=== PATIENT | male | born 1955 | race Caucasian/White ===

== ENCOUNTER → 2016-10-13 | Outpatient (CLI) | payer MEDICARE ==
--- NOTE | 2016-10-14 03:42 | RAD ---
EXAM DESCRIPTION: XR CHEST 2 VIEWS 10/13/2016 3:03 PM CLINICAL HISTORY: 61 y/o , M, COUGH COMPARISON: Portable AP view of the chest January 20, 2012 FINDINGS: There is mild peribronchial thickening throughout the lungs bilaterally. There is patchy retrocardiac airspace disease. The heart is stable in size. The mediastinal contours are normal in appearance. The osseous structures are age appropriate. The upper abdomen is grossly normal. IMPRESSION: Peribronchial thickening with patchy retrocardiac airspace disease, may represent interstitial edema or viral/ atypical infectious process. Electronically signed by: Pato Mendez MD 10/14/2016 03:40
== END ==
LOC: RAD 14:36
PROVIDERS: ATTEND Nurse Practitioner Family
DX: R05 Cough (principal); R06.00 Dyspnea, unspecified; J98.4 Other disorders of lung

== ENCOUNTER 2016-10-14 02:01 | Observation (INO) | payer MEDICARE, OTHER ==
--- NOTE | 2016-10-14 02:28 | ED.PDOC ---
History of Present Illness - General Chief Complaint: Respiratory Problem Stated Complaint: cough and short of breath for past 3 weeks Time Seen by Provider: 10/14/16 02:27 Source: patient, RN notes reviewed, Vital Signs reviewed Exam Limitations: no limitations - History of Present Illness Initial Comments: 61 y/o male with history of afib and chf stated that he had progressive worsening of SOB and feeling of chest tightess.He was brought by sheriff jj after he was stopped with registration sticker. Timing/Duration: other - 3 weeks ago Severity: moderate Improving Factors: nothing Worsening Factors: other - exertion Associated Symptoms: shortness of breath Allergies/Adverse Reactions: Allergies NO KNOWN ALLERGY Allergy (Unverified 11/02/13 03:22) Home Medications: Ambulatory Orders Furosemide [Lasix] 20 mg PO 10/14/16 Lisinopril 20 mg PO 10/14/16 Metoprolol Tartrate 50 mg PO 10/14/16 Potassium Chloride [K-Tab] 20 meq PO 10/14/16 Simvastatin 10 mg PO 10/14/16 Review of Systems - Review of Systems Constitutional: States: no symptoms reported EENTM: States: no symptoms reported Respiratory: States: orthopnea, short of breath Cardiology: States: edema, palpitations Gastrointestinal/Abdominal: States: no symptoms reported Genitourinary: States: no symptoms reported Musculoskeletal: States: no symptoms reported Skin: States: no symptoms reported Neurological: States: no symptoms reported Endocrine: States: no symptoms reported Hematologic/Lymphatic: States: no symptoms reported Past Medical History (General) - Patient Medical History Hx Asthma: Yes Hx of COPD: Yes Hx Cardiac Disorders: Yes Hx Congestive Heart Failure: Yes Hx Hypertension: Yes Surgical History: other - elbow - Vaccination History Hx Influenza Vaccination: No Hx Pneumococcal Vaccination: No - Activities of Daily Living Patient Lives Alone: Yes - Triage Comment ED Triage Comment: pt states out of albuteral inhaler, has not taken his meds today. Diagnosed with "respiratory infection by PCP, but no antibiotics" Family Medical History - Family History Mother Family History: Unknown Hx Cardiac Disease: Yes - dad Hx Family Cancer: Yes - lung-dad;lymphoma and gastic cancer-sister Physical Exam - Physical Exam General Appearance: Alert, Anxious, No apparent distress Ears, Nose, Throat: hearing grossly normal, normal ENT inspection, normal pharynx Neck: non-tender, full range of motion, supple, normal inspection Respiratory: chest non-tender, no respiratory distress, no accessory muscle use , wheezing - right lung Cardiovascular/Chest: normal peripheral pulses, no gallop, no JVD, no murmur, tachycardia, irregularly irregular Gastrointestinal/Abdominal: normal bowel sounds, non tender, soft, no organomegaly Back Exam: normal inspection, no CVA tenderness, no vertebral tenderness Extremity: normal range of motion, non-tender, normal inspection, pedal edema Neurologic: no motor/sensory deficits, alert, oriented x 3 Skin Exam: normal color, warm/dry Progress - Results/Orders Results/Orders: 10/14/16 03:17 EKG Assessment ONCE 10/14/16 03:27 TSH [THYROID STIMULATING HORMONE] Stat 10/14/16 03:30 EKG STAT 10/14/16 03:54 Heparin Sodium (Porcine) [Heparin Sodium] 5,000 u IV ONCE ONE Laboratory Results WBC 8.4 K/mm3 (4.8-10.8) 10/14/16 02:28 RBC 5.02 M/mm3 (4.70-6.10) 10/14/16 02:28 Hgb 15.1 gm/dL (14.0-18.0) 10/14/16 02:28 Hct 46.2 % (42.0-52.0) 10/14/16 02:28 MCV 92.0 fl (80.0-94.0) 10/14/16 02:28 MCH 30.1 pg (27.0-31.0) 10/14/16 02:28 MCHC 32.7 g/dL (33.0-37.0) L 10/14/16 02:28 RDW 15.4 % (11.5-14.5) H 10/14/16 02:28 Plt Count 272 K/mm3 (130-400) 10/14/16 02:28 MPV 8.3 fl (7.40-10.4) 10/14/16 02:28 Absolute Neuts (auto) 6.20 K/uL (1.8-6.8) 10/14/16 02:28 Absolute Lymphs (auto) 1.20 K/uL (1.0-3.4) 10/14/16 02:28 Absolute Monos (auto) 0.60 K/uL (0.2-0.8) 10/14/16 02:28 Absolute Eos (auto) 0.30 K/uL (0.0-0.4) 10/14/16 02:28 Absolute Basos (auto) 0.00 K/uL (0.0-0.1) 10/14/16 02:28 Neutrophils % 74.3 % (42.0-78.0) 10/14/16 02:28 Lymphocytes % 14.5 % (20.0-50.0) L 10/14/16 02:28 Monocytes % 7.0 % (2.0-9.0) 10/14/16 02:28 Eosinophils % 3.6 % (1.0-5.0) 10/14/16 02:28 Basophils % 0.6 % (0.0-2.0) 10/14/16 02:28 Sodium 135 mmol/L (135-145) 10/14/16 02:28 Potassium 3.8 mmol/L (3.6-5.0) 10/14/16 02:28 Chloride 101 mmol/L (101-111) 10/14/16 02:28 Carbon Dioxide 26 mmol/L (21-31) 10/14/16 02:28 Anion Gap 11.8 (12-18) L 10/14/16 02:28 BUN 18 mg/dL (7-18) 10/14/16 02:28 Creatinine 0.81 mg/dL (0.6-1.3) 10/14/16 02:28 BUN/Creatinine Ratio 22.2 (10-20) H 10/14/16 02:28 Random Glucose 115 mg/dL (70-105) H 10/14/16 02:28 Serum Osmolality 272.9 mOsm/L (275-295) L 10/14/16 02:28 Lactic Acid 1.2 mmol/L (0.5-2.2) 10/14/16 02:28 Calcium 8.9 mg/dL (8.4-10.2) 10/14/16 02:28 Total Bilirubin 0.7 mg/dL (0.2-1.0) 10/14/16 02:28 AST 22 IU/L (10-42) 10/14/16 02:28 ALT 17 IU/L (10-60) 10/14/16 02:28 Alkaline Phosphatase 89 IU/L (42-121) 10/14/16 02:28 Creatine Kinase 121 IU/L (38-174) 10/14/16 02:28 CK-MB (CK-2) 5.1 ng/mL (0.0-4.4) H* 10/14/16 02:28 CK-MB (CK-2) % 4.21 % (0.0-3.5) H 10/14/16 02:28 Troponin I 0.05 ng/mL (0.01-0.05) 10/14/16 02:28 B-Natriuretic Peptide 92.7 pg/ml (0-100) 10/14/16 02:28 Serum Total Protein 7.7 gm/dL (6.4-8.2) 10/14/16 02:28 Albumin 4.1 g/dl (3.2-5.5) 10/14/16 02:28 Globulin 3.6 gm/dL (2.3-3.5) H 10/14/16 02:28 Albumin/Globulin Ratio 1.1 (1.1-1.9) 10/14/16 02:28 Urine Color Yellow (Yellow) 10/14/16 03:18 Urine Appearance Clear (Clear) 10/14/16 03:18 Urine pH 5.5 (4.5-7.8) 10/14/16 03:18 Ur Specific Sperry 1.025 (1.005-1.030) 10/14/16 03:18 Urine Protein 100 mg/dL H 10/14/16 03:18 Urine Glucose (UA) Negative mg/dL (Negative) 10/14/16 03:18 Urine Ketones Negative mg/dL (NEGATIVE) 10/14/16 03:18 Urine Blood Trace-intact (Negative) H 10/14/16 03:18 Urine Nitrite Negative 10/14/16 03:18 Urine Bilirubin Negative (NEGATIVE) 10/14/16 03:18 Urine Urobilinogen 0.2 mg/dL (0.2-1.0) 10/14/16 03:18 Ur Leukocyte Esterase Negative (Negative) 10/14/16 03:18 Urine RBC 0-1 /hpf 10/14/16 03:18 Urine WBC 0 /hpf 10/14/16 03:18 Ur Epithelial Cells 0 /hpf 10/14/16 03:18 Urine Bacteria 0 10/14/16 03:18 Urine Opiates Screen Negative ng/mL (2000) 10/14/16 02:28 Urine Barbiturates Negative ng/mL (200) 10/14/16 02:28 Ur Phencyclidine Scrn Negative ng/mL (25) 10/14/16 02:28 U Amphetamin/Meth Scrn Positive ng/mL (1000) H 10/14/16 02:28 U Benzodiazepines Scrn Negative ng/mL (200) 10/14/16 02:28 U Cocaine Metab Screen Negative ng/mL (300) 10/14/16 02:28 U Cannabinoids Screen Negative ng/mL (50) 10/14/16 02:28 - EKG/XRAY/CT EKG: Atrial - [id number], Fibrillation XRAY: chest - peribronchial thickening,retrocardiac airspace disease Departure - Departure Clinical Impression: Shortness of breath dyspnea, Atrial fibrillation with rapid ventricular response COPD (chronic obstructive pulmonary disease) Qualifiers: COPD type: unspecified COPD Qualifier Code: (J44.9) Chronic obstructive pulmonary disease, unspecified Time of Disposition: 07:16 - D/W Kevin Larios ANP-Hospitalist Disposition: Admit Patient Condition: Good Departure Forms: ED Discharge - Pt. Copy, Patient Portal Self Enrollment Home Medications: Ambulatory Orders Furosemide [Lasix] 20 mg PO 10/14/16 Lisinopril 20 mg PO 10/14/16 Metoprolol Tartrate 50 mg PO 10/14/16 Potassium Chloride [K-Tab] 20 meq PO 10/14/16 Simvastatin 10 mg PO 10/14/16
[2016-10-14] MEDS ORDERED: NITROGLYCERIN 0.4 MG 25 EA TAB SL ONE (02:31)
[2016-10-14] MEDS ORDERED: BUMETANIDE 0.25 MG/ML VIAL IV ONE (02:32)
[2016-10-14] MEDS ORDERED: niCARdipine HCL 2.5 MG/ML AMP IVPB ONE (03:47)
[2016-10-14] MEDS ORDERED: HEPARIN SODIUM (PORCINE) 5,000 U/ML VIAL IV ONE (03:54)
[2016-10-14] MEDS ORDERED: LIDOCAINE VIS-MYLANTA 30 ML UD PO ONE (04:35)
[2016-10-14] MEDS ORDERED: SODIUM CHLORIDE 0.9% 100ML 100 ML IVPB ONE (05:27)
[2016-10-14] MEDS ORDERED: diltiaZEM DRIP 125 MG/25 ML VIAL IVPB ONE (05:27)
[2016-10-14] MEDS ORDERED: SODIUM CHLORIDE 0.9% 1000ML 1,000 ML ONE (05:27)
[2016-10-14] MEDS ORDERED: SODIUM CHLORIDE 0.9% 1000ML 1,000 ML IVS PRN (05:39)
--- NOTE | 2016-10-14 05:44 | CT ---
EXAM DESCRIPTION: CT ABDOMEN PELVIS WITHOUT IV CONTRAST 10/14/2016 5:13 AM CLINICAL HISTORY: 61 y/o , M, pain COMPARISON: None. TECHNIQUE: Volumetric CT acquisition was performed through the abdomen and pelvis. Images in the axial and coronal planes were presented for interpretation FINDINGS: The visualized portions of the lung bases are clear. The heart is normal in size with moderate coronary artery calcifications. Within the upper abdomen, the liver and spleen are normal in size and morphology. The gallbladder is normal in morphology. The intra/extrahepatic biliary tree is normal in appearance. The pancreas and adrenal glands are normal. The right kidney is normal in size in the right ureter is normal in course and caliber. There are no right renal calculi, distal obstructing stones, or evidence of hydronephrosis/hydroureter. The left kidney is normal in size in the left ureter is normal in course and caliber. There are no left renal calculi, distal obstructing stones, or evidence of hydronephrosis/hydroureter. The stomach and small intestines are within normal limits without evidence of bowel dilation or wall thickening. The appendix is well visualized and normal, best seen on axial image 52 anterior to the right kidney. The colon is stool filled and unremarkable. Within the pelvis, the bladder and rectum are normal. The prostate is age-appropriate. There are no pathologically enlarged inguinal, retroperitoneal, portacaval, or mesenteric lymph nodes. There is a small fat containing paraumbilical hernia measuring up to 3 cm in diameter without evidence of bowel herniation or obstruction. There are degenerative changes throughout the thoracolumbar spine with multilevel disc space narrowing and vacuum disc phenomenon. There is associated end plate sclerosis at the L5/S1 level. There is multilevel facet hypertrophy throughout the mid and lower lumbar spine. The abdominal aorta in his primary branches are normal in course and caliber with moderate vascular calcifications. Limited evaluation of the venous structures demonstrates no gross abnormalities. IMPRESSION: 1. No acute intra-abdominal process. 2. Small fat containing paraumbilical hernia. 3. Degenerative changes of the lumbar spine. 4. Coronary artery calcifications. Electronically signed by: Pato Mendez MD 10/14/2016 05:42
[2016-10-14] MEDS ORDERED: diltiaZEM DRIP 125 MG in SODIUM CHLORIDE 0.9% 100ML 100 ML IVPB SCH (06:00)
[2016-10-14] MEDS ORDERED: diltiaZEM HCL TAB 30 MG TAB PO ONE (07:17)
[2016-10-14] MEDS ORDERED: METOPROLOL TARTRATE 50 MG TAB PO ONE (08:19)
--- NOTE | 2016-10-14 08:44 | HP ---
SUPERVISING PHYSICIAN: Adonay Otoole M.D. CHIEF COMPLAINT: Cough and shortness of breath. HISTORY OF PRESENT ILLNESS: Mr. Ivan is a 61 year-old male patient that presented to the Emergency Department from the critical access hospital. He noted that he was having worsening shortness of breath and feeling like he was having some chest pains. He does have a history of atrial fibrillation, congestive heart failure and hypertension. He notes that he had been recently treated for an upper respiratory infection in the past week at the [facility]. He also reports that he had not been taking his medications as prescribed, mainly he had missed his Lasix and his Metoprolol. He also admits that he has used methamphetamines within the last 3 days. In the Emergency Department, it was noted on his EKG that he had the rhythm of atrial fibrillation with a rapid ventricular rate of 136. He had a chest x-ray that indicated that he had some peribronchial thickening essentially unchanged from previous x-rays. Initially he was given Cardizem and started on IV drip as well as he was given 5,000 units of Heparin. His ventricular rate did normalize at which time he was taken off the Cardizem drip and given 100 mg of Metoprolol. The patient stabilized and now is to be admitted for further observation and treatment. PAST MEDICAL HISTORY: 1. Hyperlipidemia. 2. Depression. 3. Hypertension. 4. Atrial fibrillation. 5. Diastolic heart failure without any echocardiogram for review. 6. Osteoarthritis. 7. Chronic obstructive pulmonary disease. PAST SURGICAL HISTORY: 1. Temporary tracheotomy in 2016. CURRENT MEDICATIONS: 1. Diclofenac 75 mg twice daily. 2. Lovastatin 20 mg at bedtime. 3. Lasix 20 mg daily. 4. Metoprolol tartrate 50 mg b.i.d. 5. Lisinopril 10 mg daily. 6. Potassium chloride extended release 20 mEq daily. ALLERGIES: NO KNOWN DRUG ALLERGIES. FAMILY HISTORY: Unremarkable. SOCIAL HISTORY: The patient is disabled. Lives in [place]. He is . He notes that he is a previous smoker that quit many years ago. He denies any alcohol usage but does report that he has used methamphetamines within the last 3 days. REVIEW OF SYSTEMS: CONSTITUTIONAL: Denies any unintentional weight loss or gain. HEENT: Denies any nasal congestion, headaches, visual disturbances, sinus pressure or sore throat. RESPIRATORY: As noted, does have some orthopnea and worsening shortness of breath as noted in the History of Present Illness. CARDIOVASCULAR: Does note he has some peripheral edema at times and has been having some palpitations as noted in the History of Present Illness. GASTROINTESTINAL: Denies any nausea or vomiting, diarrhea or constipation. NEUROLOGIC: He denies any headaches, syncopal episodes or any neurological deficits. PHYSICAL EXAMINATION: VITAL SIGNS: Initial vital signs in the Emergency Department showed him to have a heart rate of 132, blood pressure 174/85, respirations 20 to 25. He was satting 95% on room air. After treatment and at time of admission to the Medical/Surgical floor his blood pressure was 158/97, heart rate was 88, respirations were 20, O2 sats were 94% on room air. Admission weight 106.5 kg. GENERAL: The patient is very unkempt. He is alert. Appears to be in no distress. HEENT: Tympanic membranes are occluded with cerumen bilaterally. Oropharynx is pink and moist without any lesions. NECK: No jugular venous distention. CHEST: Chest is clear to auscultation with no noted respiratory distress. No wheezing, rhonchi or rales. CARDIOVASCULAR: Slightly irregular rate and rhythm. No murmurs, gallops, or rubs noted. ABDOMEN: Obese but soft, non-tender. Positive bowel sounds. EXTREMITIES: No clubbing or cyanosis. There is just a trace of pedal edema. NEUROLOGIC: He is alert and oriented times three. Cranial nerves II-XII are grossly intact. Facial features are symmetrical. Extraocular movements are within normal limits. There is no notable focalizing neuromotor deficits. LABORATORY: White count 8.4, hemoglobin 15.1, hematocrit 46.2, platelet count 272,000. Differential shows to be within normal limits. Chemistries show normal electrolytes with potassium 3.8, BUN 18, creatinine 0.8, glucose 115, lactic acid 1.2, calcium 8.9. Liver functions show to be within normal limits. CPK was elevated at 5.1. Troponin initially was 0.05. TSH was normal at 1.74. Urine showed a trace of blood with 100 protein. Microscopic was within normal limits. Urine drug screen showed positive for methamphetamines, negative for all other substances tested. RADIOLOGY: Abdominal/Pelvic CT without contrast per radiology interpretation showed no acute intraabdominal processes with a small fat-containing periumbilical hernia and some coronary artery calcifications. The visualized portions of the lungs were clear. Heart was normal in size. Review of chest x- ray performed on 10/13/16 through [facility] just showed peribronchial cuffing with no consolidations. ASSESSMENT: 1. Shortness of breath with chronic atrial fibrillation with a rapid ventricular rate initially on admission with the patient having missed his beta blockers and had previously been on methamphetamines with the patient reporting no chest pains and current troponins at time of admission showing to be within normal limits. 2. History of diastolic heart failure with no current echocardiogram for review with the patient not being compliant with his medication having not taken his Lasix within the last 3 days. 3. Chronic obstructive pulmonary disease with a recent exacerbation secondary to acute bronchitis likely viral with exacerbation secondary to his atrial fibrillation and rapid ventricular response. 4. Hypertension. 5. Depression. 6. Osteoarthritis. PLAN: The patient will be placed in Observation and placed on telemetry. He was given 100 mg of Metoprolol in the Emergency Department along with the previous discontinued Cardizem drip and 120 mg of Cardizem prior to admission to the Medical/Surgical floor. Will continue his home medications once they have been updated. Will do serial enzymes again this afternoon and in the morning as well as EKGs. He will be on O2 as needed. Will start him on DVT prophylaxis as per protocol. Anticipate length of stay to be 1 to 2 days. Will most likely discharge in the morning pending clinical reevaluation and laboratory studies. Until then, will continue to monitor the patient closely and treat appropriately. #[id number] [facility]
[2016-10-14] MEDS ORDERED: SODIUM CHLORIDE 0.9% (FLUSH) 10 ML SYG IV PRN (09:22)
[2016-10-14] MEDS ORDERED: ACETAMINOPHEN 325 MG TAB PO PRN (09:22)
[2016-10-14] MEDS ORDERED: FUROSEMIDE 40 MG TAB PO ONE (09:26)
[2016-10-14] MEDS ORDERED: IV SET AND CAP CHANGE INJ INJ SCH (09:30)
--- NOTE | 2016-10-14 17:54 | PCM.CORE ---
Physician DVT/VTE - Nurse DVT Assessment & Total Each Risk Factor Represents 1 Point: Age 41-60, Hx of smoking past year Each Risk Factor is 1 Point: Varicose Veins/Edema Legs, Obesity (BMI >25), Serious Lung disease (pnemonia <1month, COPD, emphysema,etc) DVT Assessment Score: 5 - 5 or more Very High Risk Treatments: Early Ambulation *, Sequential Compression Device Pharmacological: Enoxaparin 40mg SQ Daily
[2016-10-14] MEDS ORDERED: ENOXAPARIN SODIUM 40 MG/0.4 ML SYG SUBCU SCH (18:00)
[2016-10-14] MEDS ORDERED: SODIUM CHLORIDE 0.9% (FLUSH) 10 ML SYG IV SCH (21:00)
[2016-10-14] MEDS ORDERED: METOPROLOL TARTRATE 50 MG TAB PO SCH (21:00)
[2016-10-14] MEDS ORDERED: NON-FORMULARY MEDICATION 1 EA MIS (Lovastatin [Lovastatin] 20 MG) PO SCH (21:00)
[2016-10-14] MEDS: DICLOFENAC SODIUM 75 MG TAB PO SCH (21:56)
[2016-10-15 04:49] VITALS: BP 130/87; TEMP 97.1
[2016-10-15] MEDS ORDERED: METOPROLOL TARTRATE 50 MG TAB PO SCH (07:30)
[2016-10-15] MEDS ORDERED: POTASSIUM CHLORIDE 20 MEQ TAB PO SCH (07:30)
[2016-10-15] MEDS ORDERED: FUROSEMIDE 40 MG TAB PO SCH (09:00)
[2016-10-15] MEDS ORDERED: LISINOPRIL 10 MG TAB PO SCH (09:00)
[2016-10-15] MEDS: DICLOFENAC SODIUM 75 MG TAB PO SCH (09:26)
[2016-10-15 10:03] VITALS: O2SAT 91
--- NOTE | 2016-10-15 11:17 | DS ---
DISCHARGE DIAGNOSIS: 1. Chronic atrial fibrillation with an acute exacerbation with associated rapid ventricular response, probably related to missing his beta blockers for several days and showing improvement with reinstitution of the beta blockade. 2. Chronic obstructive pulmonary disease with an acute exacerbation with associated bronchitis and associated shortness of breath. 3. History of tobacco use in the past having stopped a few months ago. 4. History of chronic congestive heart failure with a diastolic component, but no recent echocardiogram and the patient currently on a lose dose of loop diuretic. 5. Chronic hypertension. 6. History of depression. 7. History of osteoarthritis. 8. History of chronic back pain, present most of his life. HISTORY OF PRESENT ILLNESS: This 61-year-old, white male was admitted to the hospital from the Emergency Room after being brought from the [facility] because of worsening shortness of breath and chest discomfort. He was noted to have chronic atrial fibrillation currently with a rapid ventricular response, probably from missing his beta blockade medications for a few days while in alf. The possibility of an underlying respiratory infection with bronchitis to be considered as well as his chronic obstructive pulmonary disease. He was placed in the hospital for rate control as well as pulmonary hygiene, stabilization, and further evaluation to rule out underlying ischemic coronary disease. He was initially given a Cardizem drip that was switched over to his usual outpatient beta blockade with his pulse slowly returning towards normal. LABORATORY: White count normal during the hospital stay. Hemoglobin 14. Chemistries showed potassium 3.7, BUN 23, creatinine 1, glucose 150, lactic acid 1.2. Liver enzymes normal. Troponin 0.03 on discharge. Beta natriuretic peptide 93. Albumin 3.6, TSH 1.74. Urine showed proteinuria and trace of blood. Toxicology was positive for methamphetamines. No cultures obtained. Abdominopelvic CT scan was performed because of pain and showed no acute intraabdominal process with a fat containing periumbilical hernia noted and degenerative changes of the lumbar spine with coronary artery calcifications present. HOSPITAL COURSE: The patient was feeling much improved with breathing symptoms at discharge though still with a cough with no significant sputum production. He was having recurrent low back discomfort with muscle spasm at the time of discharge which he has had most of his life, according to the patient. He is encouraged to increase activity level to assist with some of the ongoing fitness factors as well as the orthopedic considerations to assist with muscle strength and splinting of his back. PLAN: The patient is discharged home specifically to have followup with [facility] within the next week or sooner. He will continue with increase activity level with his normal diet and needs to faithfully take his medications to help control the atrial fibrillation rate. Continue with albuterol with a prescription given for assisting his chronic obstructive pulmonary disease. Discuss with [facility] for the possibility of utilizing a medication nebulizer for home use. Avoid all tobacco smoke. Increase exercise by walking and return if not improving. #[id number] YANELIS
[2016-10-15] MEDS ORDERED: PRAVASTATIN SODIUM 20 MG TAB PO SCH (21:00)
== END 2016-10-15 09:57 | disposition home or self-care (01) ==
LOC: ER 02:01 → MS 08:43 → INTOOBSV 08:43
PROVIDERS: ADMIT Family Medicine; ATTEND Emergency Medicine
DX: I48.2 Chronic atrial fibrillation (principal); J44.0 Chronic obstructive pulmonary disease with (acute) lower respiratory infection; J20.9 Acute bronchitis, unspecified; J44.1 Chronic obstructive pulmonary disease with (acute) exacerbation; R06.02 Shortness of breath; T50.1X6A Underdosing of loop [high-ceiling] diuretics, initial encounter; T44.7X6A Underdosing of beta-adrenoreceptor antagonists, initial encounter; I50.32 Chronic diastolic (congestive) heart failure; I11.0 Hypertensive heart disease with heart failure; E78.5 Hyperlipidemia, unspecified; F32.9 Major depressive disorder, single episode, unspecified; M19.90 Unspecified osteoarthritis, unspecified site; G89.29 Other chronic pain; M54.9 Dorsalgia, unspecified; Z91.138 Patient's unintentional underdosing of medication regimen for other reason; Z79.899 Other long term (current) drug therapy; Z87.891 Personal history of nicotine dependence; Y92.148 Other place in prison as the place of occurrence of the external cause
CPT/HCPCS: 36415 ×3; 74176; 80053 ×2; 81001; 82550 ×3; 82553 ×3; 83605; 83880; 84443; 84484 ×3; 85025 ×2; 93005 ×2; 94762; G0378; G0479; J1644; J1650; J2060; J3490; J7030; J7050

== ENCOUNTER 2016-12-07 14:34 | Emergency (ER) | payer MEDICARE, OTHER ==
[2016-12-07 14:44] VITALS: TEMP 97.6
[2016-12-07] MEDS ORDERED: FUROSEMIDE INJ 40 MG/4 ML VIAL IV ONE (14:48)
[2016-12-07] MEDS ORDERED: IPRATROPIUM/ALBUTEROL 3 ML VIAL NEB ONE ×3 (14:48→16:08)
--- NOTE | 2016-12-07 15:50 | RAD ---
EXAM: Chest,2 Views CLINICAL INDICATION: 61-year-old male with shortness of breath. TECHNIQUE: Two-view, PA and lateral projections of the chest were obtained. COMPARISON: 10/03/2016. FINDINGS: Stable prominent cardiac and mediastinal silhouette. Heart size is top normal. Tortuous thoracic aorta. Mild hazy opacification of the bilateral perihilar regions and lung bases may be secondary to subsegmental atelectasis, mild edema. Lungs are clear without focal opacity, pneumothorax or pleural effusions. Elevation of the RIGHT hemidiaphragm. The visualized bones are within normal limits. IMPRESSION: Mild hazy opacification of the bilateral perihilar regions and lung bases may be secondary to subsegmental atelectasis, mild edema. Electronically signed by: Rosita Phelan MD 12/07/2016 3:49 PM CDT
--- NOTE | 2016-12-07 16:10 | ED.PDOC ---
History of Present Illness - General Chief Complaint: Respiratory Problem Stated Complaint: shortness of breath Time Seen by Provider: 12/07/16 14:42 Source: patient Exam Limitations: no limitations - History of Present Illness Initial Comments: the patient is a 61-year-old male presenting to the emergency room secondary to progressive dyspnea on exertion along with orthopnea over the last 3-4 weeks. The patient has not been taking his Lasix due to a lack of the medication and he does also not do any breathing treatments for his COPD. He does have a mildly productive sputum. No fevers. No real chest pain. No palpitations though he does have a history of atrial fibrillation and has had A. fib with RVR in the past. No syncope or near syncope. He does have some edema but he reports that this is only a little more than what is normal for him. Severity: moderate Improving Factors: nothing Worsening Factors: movement Associated Symptoms: loss of appetite, malaise, shortness of breath Allergies/Adverse Reactions: Allergies NO KNOWN ALLERGY Allergy (Verified 10/14/16 08:49) Home Medications: Ambulatory Orders Lisinopril 10 mg PO DAILY 10/14/16 Lovastatin 20 mg PO BEDTIME 10/14/16 Metoprolol Tartrate 50 mg PO BID 10/14/16 Furosemide [Lasix] 40 mg PO DAILY #15 tab 12/07/16 Ipratropium/Albuterol Inhaler [Combivent Respimat 20-100 Mcg/Act] 1 puff INH Q6H #1 inh 12/07/16 Review of Systems - Review of Systems Constitutional: States: malaise EENTM: States: no symptoms reported Respiratory: States: orthopnea, short of breath, wheezing Cardiology: States: edema Gastrointestinal/Abdominal: States: no symptoms reported Genitourinary: States: no symptoms reported Musculoskeletal: States: no symptoms reported Skin: States: no symptoms reported Neurological: States: no symptoms reported All other Systems: No Change from Baseline Past Medical History (General) - Patient Medical History Hx Seizures: No Hx Stroke: No Hx Asthma: Yes Hx of COPD: Yes Hx Cardiac Disorders: Yes Hx Congestive Heart Failure: Yes Hx Pacemaker: No Hx Hypertension: Yes Hx Diabetes: No Hx MRSA: No - Vaccination History Hx Influenza Vaccination: No Hx Pneumococcal Vaccination: No - Social History Hx Tobacco Use: Yes Hx Alcohol Use: Yes Family Medical History - Family History Mother Family History: Unknown Hx Cardiac Disease: Yes - dad Hx Family Cancer: Yes - lung-dad;lymphoma and gastic cancer-sister Physical Exam - Physical Exam General Appearance: Alert, Comfortable, No apparent distress Eye Exam: bilateral normal Ears, Nose, Throat: normal ENT inspection, normal pharynx Neck: non-tender, full range of motion, supple Respiratory: chest non-tender, no accessory muscle use, decreased breath sounds , wheezing Cardiovascular/Chest: normal peripheral pulses, other - regular rate but irregular rhythm Peripheral Pulses: radial,right: 2+, radial,left: 2+, dorsalis pedis,right: 2+, dorsalis pedis,left: 2+ Gastrointestinal/Abdominal: non tender, soft Rectal Exam: deferred Back Exam: normal inspection, no CVA tenderness, no vertebral tenderness Extremity: normal range of motion, non-tender, no calf tenderness, normal capillary refill, pedal edema Neurologic: bisque brusher II-XII nml as tested, alert, normal mood/affect, oriented x 3 Skin Exam: normal color Comments: Vital Signs - 24 hr 12/07/16 12/07/16 12/07/16 14:40 15:00 15:01 Temperature 97.6 F Pulse Rate 96 H Pulse Rate [ 110 H Left Brachial] Respiratory 28 H 25 H 28 H Rate Blood Pressure 132/100 [Left Arm] O2 Sat by Pulse 96 100 Oximetry 12/07/16 15:48 Temperature Pulse Rate Pulse Rate [ 104 H Left Brachial] Respiratory 32 H Rate Blood Pressure 146/103 [Left Arm] O2 Sat by Pulse 97 Oximetry Progress - Progress Progress: 12/07/16 16:12 the patient is a 61-year-old male presenting with a COPD exacerbation that appears to be worsening his CHF. The patient was given 1 dose of IV Lasix and has diuresed nicely. His also received 2 doses of DuoNeb's and is breathing more easily. I do not see any evidence of any definitive underlying infection. The patient will be placed on Lasix 40 mg on Thursday and Thursday only. He will also be written for a Combivent inhaler to help control his COPD. He does need follow-up with his primary care doctor in the coming week. ER warnings were given for any worsening. - Results/Orders Results/Orders: 12/07/16 14:48 Telemetry .CONTINUOUS 12/07/16 15:15 EKG STAT Laboratory Results - last 24 hr 12/07/16 14:56 WBC 6.6 RBC 4.27 L Hgb 13.1 L Hct 40.5 L MCV 94.8 H MCH 30.6 MCHC 32.2 L RDW 17.2 H Plt Count 257 MPV 8.3 Absolute Neuts (auto) 4.60 Absolute Lymphs (auto) 1.20 Absolute Monos (auto) 0.50 Absolute Eos (auto) 0.20 Absolute Basos (auto) 0.00 Neutrophils % 69.0 Lymphocytes % 18.7 L Monocytes % 8.3 Eosinophils % 3.4 Basophils % 0.6 PT 11.7 INR 1.040 PTT (SP) 29.5 Sodium 139 Potassium 4.3 Chloride 109 Carbon Dioxide 25 Anion Gap 9.3 L BUN 16 Creatinine 0.61 BUN/Creatinine Ratio 26.2 H Random Glucose 107 H Serum Osmolality 279.2 Calcium 8.5 Total Bilirubin 0.3 AST 40 ALT 31 Alkaline Phosphatase 83 Creatine Kinase 76 CK-MB (CK-2) 4.8 H* CK-MB (CK-2) % Not Reportable Troponin I 0.03 B-Natriuretic Peptide 200.0 H Serum Total Protein 6.9 Albumin 3.6 Globulin 3.3 Albumin/Globulin Ratio 1.1 EKG shows atrial fibrillation with fair rate control. No acute ST segment changes concerning for ischemia. He does have slow R-wave transition in anterior leads which is not new. Chest x-rays consistent with COPD with very mild fluid overload. No focal infiltrate. Departure - Departure Clinical Impression: COPD with exacerbation, CHF exacerbation Disposition: Discharge to Home or Self Care Condition: Fair Departure Forms: ED Discharge - Pt. Copy, Patient Portal Self Enrollment Instructions: DI for Chronic Obstructive Pulmonary Disease, DI for Heart Failure Diet: low salt diet Activity: increase activity as tolerated Referrals: [Primary Care Provider] - 1-5 Days Prescriptions: Ipratropium/Albuterol Inhaler [Combivent Respimat 20-100 Mcg/Act] 1 puff INH Q6H #1 inh Furosemide [Lasix] 40 mg PO DAILY #15 tab Home Medications: Ambulatory Orders Lisinopril 10 mg PO DAILY 10/14/16 Lovastatin 20 mg PO BEDTIME 10/14/16 Metoprolol Tartrate 50 mg PO BID 10/14/16 Furosemide [Lasix] 40 mg PO DAILY #15 tab 12/07/16 Ipratropium/Albuterol Inhaler [Combivent Respimat 20-100 Mcg/Act] 1 puff INH Q6H #1 inh 12/07/16 Additional Instructions: the patient is a 61-year-old male presenting with a COPD exacerbation that appears to be worsening his CHF. The patient was given 1 dose of IV Lasix and has diuresed nicely. His also received 2 doses of DuoNeb's and is breathing more easily. I do not see any evidence of any definitive underlying infection. The patient will be placed on Lasix 40 mg on Thursday and Thursday only. He will also be written for a Combivent inhaler to help control his COPD. He does need follow-up with his primary care doctor in the coming week. ER warnings were given for any worsening.
[2016-12-07 16:24] VITALS: O2SAT 95
[2016-12-07 16:31] VITALS: BP 148/100
== END 2016-12-07 16:31 | disposition home or self-care (01) ==
LOC: ER 14:34
DX: J44.1 Chronic obstructive pulmonary disease with (acute) exacerbation (principal); I11.0 Hypertensive heart disease with heart failure; I50.9 Heart failure, unspecified; I48.91 Unspecified atrial fibrillation; Z79.899 Other long term (current) drug therapy; Z87.891 Personal history of nicotine dependence
CPT/HCPCS: 36415; 71020; 80053; 82550; 82553; 83880; 84484; 85025; 85610; 85730; 93005; 94640; J1940; J7620